=== PATIENT | male | born 1945 | race Caucasian/White ===

== ENCOUNTER 2017-12-03 18:33 | Inpatient (IN) | payer MEDICARE, OTHER ==
[~2017-12-03] VITALS: Ht 162.6 cm; Wt 62.9 kg
[2017-12-03 19:03] LABS: BASO # 0.1 (0.0-0.2); BASO % 0.4 % (0.0-2.0); EOS # 0.2 (0.0-0.7); GRAN # 9.2 (1.4-6.5); GRAN % 75.7 % (42.2-75.2); HEMATOCRIT 40.4 % (42.0-52.0); HEMOGLOBIN 13.1 g/dl (13.5-18.0); LYMPH # 1.7 (1.2-3.4); LYMPH % 14.1 % (20.0-51.0); MEAN CELL VOLUME 96 fl (80.0-100.0); MEAN CORPUSCULAR HEMOGLOBIN 31 pg (27.0-31.0); MEAN CORPUSCULAR HGB CONC 32 g/dl (33.0-37.0); MEAN PLATELET VOLUME 9.9 fl (7.4-10.4); MONO # 0.8 (0.1-0.6); MONO % 6.7 % (1.7-9.3); PLATELET COUNT 165 K/mm3 (130-400); RED BLOOD COUNT 4.19 M/mm3 (4.20-5.60); REDCELL DISTRIBUTION WIDTH-CV 14.6 % (11.5-14.5)
[2017-12-03 19:15] LABS: ALANINE AMINOTRANSFERASE 29 U/L (21-72); ALKALINE PHOSPHATASE 73 U/L (50-136); ANION GAP 13 mmol/L (7-16); AST,SGOT 34 U/L (15-37); BILIRUBIN,TOTAL 0.4 mg/dL (0.0-1.0); BLOOD UREA NITROGEN 25 mg/dL (9-20); C-REACTIVE PROTEIN 1.9 mg/dL (0.0-0.9); CALCIUM 9.6 mg/dL (8.4-10.2); CARBON DIOXIDE 30 mmol/L (22-30); CHLORIDE 99 mmol/L (98-107); CREATININE, serum 1.21 mg/dL (0.66-1.25); GLUCOSE 132 mg/dL (74-106); POTASSIUM 4.2 mmol/L (3.4-5.0); SODIUM 142 mmol/L (137-145); TOTAL PROTEIN 7.9 gm/dL (6.4-8.2)
[2017-12-03 19:24] LABS: TROPONIN-I < 0.012 ng/mL (0.000-0.034)
[2017-12-03 20:33] LABS: COLLECTION METHOD CLEAN CATCH
[2017-12-03 20:43] LABS: MUCOUS Present /lpf; PH 6 (5-8); SQUAMOUS EPITHELIAL None Seen /hpf; URINE APPEARANCE Clear; URINE BACTERIA None Seen /hpf; URINE BILIRUBIN Negative (NEGATIVE); URINE BLOOD 1+ (NEGATIVE); URINE COLOR Straw; URINE GLUCOSE Negative (NEGATIVE); URINE KETONE Negative (NEGATIVE); URINE LEUKOCYTE ESTERASE Negative (NEGATIVE); URINE NITRATE Negative (NEGATIVE); URINE PROTEIN(semi-quant) Negative (NEGATIVE); URINE UROBILINOGEN Negative (NEGATIVE)
[2017-12-03] MEDS ORDERED: SYNTHROID 0.0.025 MG PO (20:56)
[2017-12-03] MEDS ORDERED: ZYPREXA2.5 MG PO ×2 (20:56→21:09)
[2017-12-03] MEDS ORDERED: NEURONTIN300 MG/CAP PO ×2 (20:57→21:05)
[2017-12-03] MEDS ORDERED: LIPITOR20 MG PO (20:58)
[2017-12-03] MEDS ORDERED: DEPAKOTE 125MG125 MG PO (20:59)
[2017-12-03] MEDS ORDERED: ZYLOPRIM 300MG300 MG PO (21:01)
[2017-12-03] MEDS ORDERED: ASPIRIN 81M81 MG/TA2 PO (21:02)
[2017-12-03] MEDS ORDERED: B-121000 MCG PO (21:03)
[2017-12-03] MEDS ORDERED: DEPAKOTE500 MG PO (21:03)
[2017-12-03] MEDS ORDERED: CYMBALTA 30MG30 MG PO (21:04)
[2017-12-03] MEDS ORDERED: COLACE 100100 MG/CAP PO (21:04)
[2017-12-03] MEDS ORDERED: GLUCOPHAGE500 MG/TAB PO (21:06)
[2017-12-03] MEDS ORDERED: PRINIVIL20 MG PO (21:06)
[2017-12-03] MEDS ORDERED: LOPRESSOR 225 MG/TAB PO (21:07)
[2017-12-03] MEDS ORDERED: NICODERM C21 MG/PATC TD (21:07)
[2017-12-03] MEDS ORDERED: PROTONIX 40MG T40 MG PO (21:08)
[2017-12-03] MEDS ORDERED: TYLENOL 325MG325 MG PO (21:10)
[2017-12-03] MEDS ORDERED: ANTACID 225 MG360 M1 PO (21:11)
[2017-12-03] MEDS ORDERED: MILK OF MA1200 MG/5 PO (21:11)
[2017-12-03] MEDS ORDERED: TESSALON P100 MG/CAP PO (21:12)
[2017-12-03 23:29] VITALS: BP 134/74; PULSE 76; TEMP 98.5
[2017-12-04] VITALS (7 sets, daily range): BP systolic 108–128; BP diastolic 55–77; PULSE 70–84; TEMP 97.7–98.9
[2017-12-04] MEDS ORDERED: LIDODERM 5% PATC1 EA TP (00:59)
[2017-12-04 07:27] LABS: MEAN CELL VOLUME 98 fl (80.0-100.0); MEAN CORPUSCULAR HGB CONC 31 g/dl (33.0-37.0); MEAN PLATELET VOLUME 10.6 fl (7.4-10.4); PLATELET COUNT 125 K/mm3 (130-400); RED BLOOD COUNT 3.48 M/mm3 (4.20-5.60); REDCELL DISTRIBUTION WIDTH-CV 14.7 % (11.5-14.5)
[2017-12-04 07:29] LABS: CALCIUM 8.3 mg/dL (8.4-10.2); CREATININE, serum 0.99 mg/dL (0.66-1.25); POTASSIUM 4.1 mmol/L (3.4-5.0)
[2017-12-04 07:34] LABS: HEMATOCRIT 34.2 % (42.0-52.0); HEMOGLOBIN 10.6 g/dl (13.5-18.0); MEAN CORPUSCULAR HEMOGLOBIN 30 pg (27.0-31.0)
[2017-12-04 09:09] LABS: BAND 29 % (0-10); LYMPHOCYTE 2 % (20.0-51.0); NEUTROPHILS 69 % (42.0-75.2)
[2017-12-04 09:12] LABS: HYPOCHROMIA 2+; PLATELET ESTIMATE DECREASED (NORMAL)
[2017-12-05 03:47] VITALS: BP 118/59; PULSE 69; TEMP 98.4
[2017-12-05 07:08] LABS: BASO % 0.2 % (0.0-2.0); GRAN # 8.3 (1.4-6.5); GRAN % 82.3 % (42.2-75.2); LYMPH % 9.4 % (20.0-51.0); MEAN CELL VOLUME 99 fl (80.0-100.0); MEAN CORPUSCULAR HGB CONC 31 g/dl (33.0-37.0); MEAN PLATELET VOLUME 10.9 fl (7.4-10.4); MONO # 0.8 (0.1-0.6); MONO % 7.4 % (1.7-9.3); PLATELET COUNT 112 K/mm3 (130-400); RED BLOOD COUNT 2.86 M/mm3 (4.20-5.60); REDCELL DISTRIBUTION WIDTH-CV 14.8 % (11.5-14.5)
[2017-12-05 07:13] LABS: HEMATOCRIT 28.3 % (42.0-52.0); HEMOGLOBIN 8.8 g/dl (13.5-18.0); MEAN CORPUSCULAR HEMOGLOBIN 31 pg (27.0-31.0)
[2017-12-05 08:06] VITALS: BP 125/74; PULSE 80; TEMP 98
[2017-12-05 09:32] LABS: CALCIUM 7.9 mg/dL (8.4-10.2)
[2017-12-05 09:39] LABS: CREATININE, serum 1.01 mg/dL (0.66-1.25); POTASSIUM 3.8 mmol/L (3.4-5.0)
[2017-12-05 12:38] VITALS: BP 136/77; PULSE 72; TEMP 97.5
[2017-12-05 16:42] VITALS: BP 150/84; PULSE 71; TEMP 97.9
[2017-12-05 19:47] VITALS: BP 160/80; PULSE 75; TEMP 98.1
[2017-12-05 23:46] VITALS: BP 133/66; PULSE 71; TEMP 98
[2017-12-06 00:38] LABS: MYCOPLASMA IGM ANTIBODIES 1.35 (0.00-0.90)
[2017-12-06 04:12] VITALS: BP 149/82; PULSE 64; TEMP 98.3
[2017-12-06 07:34] LABS: MEAN CELL VOLUME 96 fl (80.0-100.0); MEAN CORPUSCULAR HGB CONC 32 g/dl (33.0-37.0); PLATELET COUNT 136 K/mm3 (130-400); RED BLOOD COUNT 3.03 M/mm3 (4.20-5.60)
[2017-12-06 07:43] LABS: HEMATOCRIT 29.1 % (42.0-52.0); HEMOGLOBIN 9.4 g/dl (13.5-18.0); MEAN CORPUSCULAR HEMOGLOBIN 31 pg (27.0-31.0)
[2017-12-06 07:52] LABS: CALCIUM 7.9 mg/dL (8.4-10.2); CREATININE, serum 0.97 mg/dL (0.66-1.25); POTASSIUM 3.4 mmol/L (3.4-5.0)
[2017-12-06 08:01] VITALS: BP 162/83; PULSE 66; TEMP 98.1
[2017-12-06 08:09] LABS: BAND 10 % (0-10); LYMPHOCYTE 13 % (20.0-51.0); NEUTROPHILS 74 % (42.0-75.2)
[2017-12-06 08:10] LABS: HYPOCHROMIA 1+; PLATELET ESTIMATE NORMAL (NORMAL)
[2017-12-06] MEDS ORDERED: LEVAQUIN 750MG750 M1 PO (11:51)
[2017-12-06] MEDS ORDERED: PREDNISONE20 MG PO (11:54)
[2017-12-06 12:07] VITALS: BP 180/89; PULSE 80; TEMP 98.1
[2017-12-06 12:17] VITALS: PULSE 71
== END 2017-12-06 14:45 | DRG 871 ==
LOC: COL.ER 18:33 → MEDICAL 20:42
PROVIDERS: Emergency Medicine; Nurse Practitioner; Physician Assistant
DX: A41.9 Sepsis, unspecified organism (principal); J15.7 Pneumonia due to Mycoplasma pneumoniae; N17.9 Acute kidney failure, unspecified; J44.0 Chronic obstructive pulmonary disease with (acute) lower respiratory infection; J44.1 Chronic obstructive pulmonary disease with (acute) exacerbation; Z66 Do not resuscitate; I10 Essential (primary) hypertension; F25.9 Schizoaffective disorder, unspecified; E11.42 Type 2 diabetes mellitus with diabetic polyneuropathy; I71.4 Abdominal aortic aneurysm, without rupture
CPT/HCPCS: 99223-AI; 99232-AI; 99239; G0378; G8985-GO; G8987-GO; J0696; J1650; J1815; J1956; J2405; J2543; J2550; J2930; J3370; J7030; J7050; J7512; Q9967